=== PATIENT | male | born 1975 | race Caucasian/White ===

== ENCOUNTER 2018-06-02 10:45 | Emergency (ER) | payer OTHER ==
[~2018-06-02] VITALS: Ht 177.8 cm; Wt 70.0 kg
[~2018-06-02 10:45] MED LIST: DIPHENHYDRAMINE 50 MG INJ ONE; HALOPERIDOL 5 MG INJ ONE; LORAZEPAM 2 MG INJ ONE
[2018-06-02] MEDS ORDERED: LORAZEPAM 2 MG INJ IM STA (10:53)
[2018-06-02] MEDS ORDERED: HALOPERIDOL 5 MG INJ IM STA (10:53)
[2018-06-02 10:55] VITALS: Ht 177.8 cm; Wt 70.0 kg
[2018-06-02] MEDS ORDERED: DIPHENHYDRAMINE 50 MG INJ IM ONE (11:00)
--- NOTE | 2018-06-02 11:09 | ERD ---
ER Documentation Chief Complaint Chief Complaint PT BIB RA AND [employer] FOR EVAL OF AGIATION. PT IN HAND CUFFS SPIT MASK ON HPI This is a 39-year-old male who was brought into the emergency department by [employer] and EMS for bizarre behavior. The patient was running in front of traffic. He has a history of amphetamine abuse. There is no signs of trauma or drug paraphernalia. The patient was resisting arrest. The patient hit his head multiple times against the window in the backseat of the [employer] vehicle. The patient denies any suicidal homicidal thoughts or ideations. ROS All systems reviewed and are negative except as per history of present illness. Medications Home Meds Unable to Obtain Active Prescriptions or Reported Meds Allergies Allergies: Coded Allergies: Unknown: Unable to obtain (Unverified , 06/02/18) Physical Exam Vitals Vital Signs Date Temp Pulse Resp B/P (MAP) Pulse Ox O2 O2 Flow FiO2 Time Delivery Rate 06/02/18 98.6 90 16 121/75 99 10:55 (90) Physical Exam Constitutional:Well-developed. Well-nourished. HEENT:Normocephalic. Frontal scalp hematoma.Pupils were 5 mm equal round reactive to light. Very dry mucous membranes.No tonsillar exudates. Neck: No nuchal rigidity. No lymphadenopathy. No posterior cervical spine tenderness or step-offs. Respiratory: Not using accessory muscles of respiration.Lungs were clear to auscultation bilaterally. No rhonchi. No rales. No wheezing. Cardiovascular: Regular rate regular rhythm.No murmurs. No rubs were appreciated.S1, S2 normal. Distal pulses are palpable 2+ bilaterally. GI: Abdomen was soft. Nontender. Non Distended. No pulsatile abdominal masses or bruits. No rebound. No guarding. Bowel sounds were present and normal. Muscle skeletal: Full range of motion of both the upper and lower extremities bilaterally.Normal muscle tone.No assymetrical calf tenderness or swelling. Skin: No petechia, no purpura. No lesions on the palms or the soles of the feet. No maculopapular rash. NEURO: Patient was alert, awake, orientated x3.No facial droop. Gait not observed as patient was handcuffed to the stretcher.Speech had regular rate and rhythm. No focal neurological deficits. PSYCH: The patient was severely agitated. Verbally de-escalate and was unable to calm the patient down. He was experiencing visual hallucinations. He denied any suicidal homicidal thoughts or ideations. Result Diagram: 06/02/18 1217 06/02/18 1217 Results 24 hrs Laboratory Tests Test 06/02/18 12:17 White Blood Count 9.1 10^3/ul Red Blood Count 4.92 10^6/ul Hemoglobin 14.8 g/dl Hematocrit 43.5 % Mean Corpuscular Volume 88.4 fl Mean Corpuscular Hemoglobin 30.1 pg Mean Corpuscular Hemoglobin Concent 34.0 g/dl Red Cell Distribution Width 13.2 % Platelet Count 270 10^3/UL Mean Platelet Volume 9.2 fl Immature Granulocytes % 0.200 % Neutrophils % 61.8 % Lymphocytes % 26.2 % Monocytes % 8.8 % Eosinophils % 2.2 % Basophils % 0.8 % Nucleated Red Blood Cells % 0.0 /100WBC Immature Granulocytes # 0.020 10^3/ul Neutrophils # 5.6 10^3/ul Lymphocytes # 2.4 10^3/ul Monocytes # 0.8 10^3/ul Eosinophils # 0.2 10^3/ul Basophils # 0.1 10^3/ul Nucleated Red Blood Cells # 0.0 10^3/ul Prothrombin Time 12.8 Sec Prothrombin Time Ratio 1.0 INR International Normalized Ratio 0.95 Activated Partial Thromboplast Time 26.4 Sec Sodium Level 142 mmol/L Potassium Level 4.3 mmol/L Chloride Level 107 mmol/L Carbon Dioxide Level 28 mmol/L Anion Gap 7 Blood Urea Nitrogen 18 mg/dl Creatinine 1.02 mg/dl Est Glomerular Filtrat Rate mL/min > 60 mL/min Glucose Level 108 mg/dl Calcium Level 10.0 mg/dl Total Bilirubin 1.7 mg/dl Direct Bilirubin 0.00 mg/dl Indirect Bilirubin 1.7 mg/dl Aspartate Amino Transf (AST/SGOT) 28 IU/L Alanine Aminotransferase (ALT/SGPT) 16 IU/L Alkaline Phosphatase 71 IU/L Total Protein 7.6 g/dl Albumin 4.4 g/dl Globulin 3.20 g/dl Albumin/Globulin Ratio 1.37 Salicylates Level < 1.0 mg/dl Acetaminophen Level < 10.0 ug/ml Ethyl Alcohol Level < 10.0 mg/dl Current Medications Medications Dose Sig/Linn Start Time Status Last (Trade) Ordered Route PRN Stop Time Admin Dose Reason Admin Lorazepam 2 mg ONCE STAT 06/02/18 DC 06/02/18 (Ativan) IM 10:53 10:53 06/02/18 10:55 Haloperidol 10 mg ONCE STAT 06/02/18 DC 06/02/18 (Haldol) IM 10:53 11:42 06/02/18 10:55 50 mg ONCE ONCE 06/02/18 DC 06/02/18 Diphenhydrami IM 11:00 10:50 ne HCl 06/02/18 11:01 (Benadryl) Procedures/MDM This patient presented to the emergency department with acute psychosis and my differential diagnosis included but was not limited to ruling out life threatening causes of acute psychosis such as Wernickes encephalopathy, hypoxia, hypoglycemia, hypertensive encephalopathy, intracerebral hemorrhage, meningitis, poisoning. After my evaluation and workup on the patient I was able to exclude medical and reversible causes of the patients psychosis. It was my clinical impression the patients symptoms were an exacerbation of his psychiatric disorder; therefore, the patient was medically cleared by myself at this time for psychiatric evalua tion and possible transfer. The patient did become severely agitated during medical assessment. Reassurance and verbal de-escalation were unsuccessful in calming the patient down. The agitation was impeding medical evaluation and treatment, with potential for the patient to harm themselves or others; therefore, pharmacological sedation was required. The patient required multiple doses of sedation due to his severe aggressive behavior. Once the patient underwent chemical sedation he had a CT scan of his head which showed no intracerebral hemorrhage mass-effect or midline shift. The patient had no severe left leg abnormalities. The patient is under police custody and will be medically cleared by myself once the patient is more alert and awake. Critical Care: Time: 45 minutes Treatments/Evaluations: Close monitoring and treatment of unstable vital signs, cardiorespiratory, and neurologic status, while maintaining tight balance of fluid, respiratory, and cardiac interventions. Time does not include performing any of the above billable procedures. Departure Diagnosis: Primary Impression: Psychosis Psychosis type: unspecified psychosis type Qualified Codes: F29 - Unspecified psychosis not due to a substance or known physiological condition Additional Impression: Toxic encephalopathy Condition: TIFFANY Smith MD Jun 02, 2018 11:09
[2018-06-02 15:56] VITALS: BP 110/82; PULSE 68; RESP 16
--- NOTE | 2018-06-02 16:30 | QN ---
Documentation Comment The patient was endorsed to me pending resolution of agitation. His CT brain is negative. Lipitor testing is unremarkable. The patient is awake. He is in police custody. I went to the bedside to talk to the patient and I asked him if he is suicidal. He continues to repeat "fuck you". I asked him multiple times if he was suicidal or homicidal and his response continued to be "fuck you". I take this to me that the patient is not acutely suicidal. He was informed that he will be going with the police officers and he stated "I am okay with that". At this time the patient is not acutely suicidal. The patient is more alert. He is safe for discharge into police custody. HANNAH KURTZ MD Jun 02, 2018 16:30
== END 2018-06-02 16:43 ==
LOC: EDBD 10:45 → E/R 10:45
DX: F29 Unspecified psychosis not due to a substance or known physiological condition (principal); G92 Toxic encephalopathy; T65.94XA Toxic effect of unspecified substance, undetermined, initial encounter
CPT/HCPCS: 70450; 80053; 80307; 85025; 85610; 85730; 96372; 99285; J1200; J1630; J2060